=== PATIENT | female | born 1980 | race African-American/Black ===

== ENCOUNTER → 2019-08-19 | Outpatient (CLI) | payer OTHER ==
--- NOTE | 2019-08-20 11:33 | RADIOLOGY REPORT (SQ) ---
EXAM DESCRIPTION: U/S THYROID/SFT TISS HD NECK COMPLETED DATE/TIME: 08/19/2019 5:15 pm REASON FOR STUDY: R22.1 LOCALIZED SWELLING, MASS AND LUMP, NECK R22.1 LOCALIZED SWELLING, MASS AND LUMP, NECK COMPARISON: None. TECHNIQUE: Dynamic and static grayscale images acquired of the localized site of clinical concern an d recorded on PACS. Additional selected color Doppler and spectral images recorded. SITE OF CONCERN: Right neck. LIMITATIONS: None. FINDINGS: There are 3 small lymph nodes, 2 on the right and 1 on the left. Largest is on the left m easuring 13 x 11 x 5 mm. Preserved fatty rajesh. IMPRESSION: Physiologic lymph nodes. TECHNICAL DOCUMENTATION: JOB ID: [id number] [employer]- All Rights Reserved Reading location - IP/workstation name: [email or web address]
== END ==
LOC: RAD 16:15
PROVIDERS: ATTEND Physician Assistant
DX: R22.1 Localized swelling, mass and lump, neck (principal)
CPT/HCPCS: 76536

== ENCOUNTER 2020-04-01 08:31 | Day surgery (SDC) | payer OTHER ==
[2020-03-29 12:26] LABS: ABSOLUTE EOSINOPHILS # (AUTO) 0.1 10^3/uL (0.0-0.6); ABSOLUTE LYMPHOCYTES (AUTO) 2.4 10^3/uL (0.5-4.7); ABSOLUTE MONOCYTES (AUTO) 0.3 10^3/uL (0.1-1.4); ABSOLUTE NEUT (AUTO) 4.9 10^3/uL (1.7-8.2); BASOPHILS % (AUTO) 0.6 % (0-2); EOSINOPHILS % (AUTO) 1.5 % (0-6); HEMOGLOBIN 12.5 g/dL (12.0-15.5); LYMPHOCYTES % (AUTO) 30.2 % (13-45); MEAN CORPUSCULAR HEMOGLOBIN 31.2 pg (27.0-33.4); MEAN CORPUSCULAR HGB CONC 34.9 g/dL (32.0-36.0); MEAN CORPUSCULAR VOLUME 89 fl (80-97); MONOCYTES % (AUTO) 4.4 % (3-13); PLATELET COUNT 317 10^3/uL (150-450); RED BLOOD COUNT 4.02 10^6/uL (3.72-5.28); RED CELL DISTRIBUTION WIDTH 13.8 % (11.5-14.0); SEGMENTED NEUTROPHILS % (AUTO) 63.3 % (42-78); TOTAL CELLS COUNTED % (AUTO) 100 %; WHITE BLOOD COUNT 7.8 10^3/uL (4.0-10.5)
[2020-03-29 12:49] LABS: ANION GAP 10 (5-19); BLOOD UREA NITROGEN 12 mg/dL (7-20); CALCIUM 9.3 mg/dL (8.4-10.2); CARBON DIOXIDE 30 mmol/L (22-30); CHLORIDE 98 mmol/L (98-107); GLUCOSE 98 mg/dL (75-110); POTASSIUM 3.7 mmol/L (3.6-5.0)
[2020-03-30 06:36] LABS: HEPATITS B SURFACE ANTIGEN Negative (Negative)
[2020-03-30 07:06] LABS: HEPATITIS C VIRUS ANTIBODY <0.1 s/co ratio (0.0-0.9)
[2020-03-30 09:42] LABS: CYTOMEGALOVIRUS IGG AB >10.00 U/mL (0.00-0.59); CYTOMEGALOVIRUS IGM AB <30.0 AU/mL (0.0-29.9)
[2020-03-31 02:36] LABS: Q FEVER PHASE I AB Negative (Neg:<1:16); ROCKY MTN SPOTTED FEV IGG EIA Negative (Negative)
[2020-03-31 06:54] LABS: EPSTEIN BARR NUCLEAR AG IGG AB >600.0 U/mL (0.0-17.9); EPSTEIN BARR VCA IGG AB >600.0 U/mL (0.0-17.9); EPSTEIN BARR VCA IGM AB <36.0 U/mL (0.0-35.9)
[2020-03-31 06:55] LABS: Q FEVER PHASE II AB Negative (Neg:<1:16)
[~2020-04-01 08:31] MED LIST: ACETAMINOPHEN 325 MG TABLET PO PRN; CEFAZOLIN 2 GM/D5W RTU 2 GM/50 ML RTUPB IV PRN; DEXAMETHASONE SOD PHOSPHATE INJ 4 MG/1 ML VIAL ONE; FENTANYL CITRATE INJ/PF 100 MCG/2 ML AMPUL ONE; IBUPROFEN 800 MG in NORMAL SALINE 250 ML IV PRN; LACTATED RINGERS 1000 ML IV PRN; LIDOCAINE 0.5% INJ-PF (5 MG/ML) 50 ML SDV SUBCUT PRN; MIDAZOLAM 2 MG/2 ML INJ ONE; ONDANSETRON HCL INJ/PF 4 MG/2 ML SDV ONE; PROPOFOL INJ 200 MG/20 ML VIAL IV ONE
[2020-04-01] MEDS ORDERED: ACETAMINOPHEN 325 MG TABLET ONE (08:36)
[2020-04-01] MEDS ORDERED: CEFAZOLIN 2 GM/D5W RTU 2 GM/50 ML RTUPB IV ONE (08:36)
[2020-04-01] MEDS ORDERED: BUPIVACAINE HCL 0.25 % INJ/PF (2.5 MG/1 ML) 30 ML VIAL ONE (09:32)
[2020-04-01] MEDS ORDERED: LIDOCAINE 1% INJ-PF (10 MG/ML) 30 ML SDV ONE (09:32)
[2020-04-01] MEDS ORDERED: METHYLENE BLUE 50 MG/10 ML AMPULE ONE (09:33)
[2020-04-01] MEDS ORDERED: PROMETHAZINE HCL INJ 25 MG/1 ML VIAL IV PRN ×2 (10:10)
[2020-04-01] MEDS ORDERED: MEPERIDINE HCL/PF INJ 25 MG/1 ML DISP.SYRIN IV PRN (10:10)
[2020-04-01] MEDS ORDERED: MORPHINE SULFATE 10 MG/ML INJ IV PRN (10:10)
[2020-04-01] MEDS ORDERED: DIPHENHYDRAMINE HCL 50 MG/ML VIAL IV PRN (10:10)
[2020-04-01] MEDS ORDERED: FENTANYL CITRATE INJ/PF 100 MCG/2 ML AMPUL IV PRN ×3 (10:10)
[2020-04-01] MEDS ORDERED: ONDANSETRON HCL INJ/PF 4 MG/2 ML SDV IV PRN (10:10)
[2020-04-01] MEDS ORDERED: SUCCINYLCHOLINE CHLORIDE INJ 200 MG/10 ML VIAL ONE (10:16)
--- NOTE | 2020-04-01 10:38 | Operative Report ---
Nonrecallable Operative Report DATE OF SURGERY: 04/01/20 PREOPERATIVE DIAGNOSIS: Enlarged right neck lymph node POSTOPERATIVE DIAGNOSIS: Same as above OPERATION: Excisional biopsy of anterior/inferior right neck lymph node, deep space. SURGEON: BEULAH VERDUZCO 1ST BOAT OFFICER: KELSEA DAILEY ANESTHESIA: GA TISSUE REMOVED OR ALTERED: Inferior/anterior right neck lymph node COMPLICATIONS: None apparent ESTIMATED BLOOD LOSS: Minimal PROCEDURE: Drains/implants: None. Procedure in detail: After informed consent was obtained, the patient was brought to the operating room and laid the supine position. The area of the anterior neck was prepped and draped in normal sterile fashion. A 3 cm anterior neck incision was created 1 fingerbreadth above the sternal notch. Dissection was carried through the subcutaneous tissue. The platysma was divided. Subplatysmal flaps were raised superiorly and inferiorly. The right neck lymph node was then easily brought into view. The lymph node was obviously necrotic. It was excised from the surrounding tissues using a mixture of blunt dissection electrocautery. After the lymph node was removed, the platysma was closed using interrupted 3-0 Vicryl suture. The overlying skin was closed using 4-0 Vicryl Rapide suture in subcuticular fashion. A dressing was placed, and the procedure was concluded. All sponge, instrument, needle counts were correct x2. Condition: Stable. Kelsea Dailey PA-C was scrubbed and present the entirety of the procedure. She assisted with all portions of the procedure including opening of the neck, dissection of the lymph node, removal of the lymph node, closure of the platysma, closure of the skin.
[2020-04-01] MEDS ORDERED: HYDROCODONE/ACETAMINOPHEN 10-325 MG TABLET PO PRN (10:42)
--- NOTE | 2020-04-01 10:42 | Discharge Summary ---
Discharge Summary (SDC) - Discharge Final Diagnosis: Enlarged right inferior/anterior neck lymph node Date of Surgery: 04/01/20 Discharge Date: 04/01/20 Condition: Stable Treatment or Instructions: Discharge home. Diet as tolerated. Activity: Nonstrenuous. Follow-up with [facility] in 7 to 10 days. [place] 5/325 mg p.o. every 6 hours as needed for pain. Okay to shower starting Saturday. Prescriptions: Hydrocodone/Acetaminophen [[place] 5-325 Tablet] 1 each PO Q6HP PRN #10 tablet PRN Reason: For Pain Referrals: ANNE BRUNSON PA-C [Primary Care Provider] - Discharge Diet: As Tolerated Respiratory Treatments at Home: Deep Breathing/Coughing, Incentive Spirometer Discharge Activity: Balance Activity w/Rest Home Care Assistance: None Needed Report the Following to Your Physician Immediately: Shortness of Breath, Nausea, Vomiting, Increase in Pain, Fever over 101 Degrees, Unusual Bleeding, Redness, Swelling, Warmth
[2020-04-01] MEDS: FENTANYL CITRATE INJ/PF 100 MCG/2 ML AMPUL ONE ×2 (10:55→11:00)
--- NOTE | 2020-04-01 11:17 | Operative Report ---
Nonrecallable Operative Report DATE OF SURGERY: 04/01/20 PREOPERATIVE DIAGNOSIS: Bleeding internal hemorrhoids POSTOPERATIVE DIAGNOSIS: Same as above OPERATION: Rubber band ligation of internal hemorrhoids x4. SURGEON: BEULAH VERDUZCO ANESTHESIA: LMAC TISSUE REMOVED OR ALTERED: None COMPLICATIONS: None apparent ESTIMATED BLOOD LOSS: Minimal PROCEDURE: Drain/implants: None. Procedure in detail: After informed consent was obtained, the patient is brought to the operating room and laid in the left lateral decubitus position. A Hill- Hernandez retractor was inserted into the rectum. Internal hemorrhoids were identified. They were worse in the right posterior and right anterior positions. 4 rubber bands were used circumferentially to ligate internal hemorrhoids. Once this was completed, the procedure was concluded. All sponge, instrument, and needle counts were correct x2. Condition: Stable.
[2020-04-01 13:27] VITALS: BP 189/98
== END 2020-04-01 13:27 | disposition home or self-care (01) ==
LOC: OROUT 08:31
PROVIDERS: ATTEND Surgery
DX: R59.0 Localized enlarged lymph nodes (principal); I10 Essential (primary) hypertension; Z79.899 Other long term (current) drug therapy; Z03.818 Encounter for observation for suspected exposure to other biological agents ruled out; E66.9 Obesity, unspecified
CPT/HCPCS: 36415 ×2; 87206; 87116; 87101; 86665 ×2; 86664; 85025; 87635; 81025; 80048; 86644; 86757; 87015; 80074; 88342 ×2; 88305 ×2; 88312 ×2; 38510; J2250; J1100; J3010; J0330; J2405; J7050; J2704; J0690; J1741; C9803; 320; J3490; Q9968

== ENCOUNTER → 2020-09-28 | Outpatient (CLI) | payer OTHER ==
--- NOTE | 2020-09-29 15:10 | WOMENS IMAGING REPORT ---
EXAM DESCRIPTION: 3D SCREENING MAMMO BILAT IMAGES COMPLETED DATE/TIME: 09/28/2020 2:45 pm REASON FOR STUDY: Z12.31 ENCNTR SCREEN MAMMOGRAM FOR MALIGNANT NEOPLASM OF BREAST Z12.31 ENCNTR SCR EEN MAMMOGRAM FOR MALIGNANT NEOPLASM OF ELAINE COMPARISON: Baseline study EXAM PARAMETERS: Views: Standard craniocaudal and mediolateral oblique views of each breast recorded using digital acquisition and breast tomosynthesis. Read with the assistance of CAD. .[facility] - [employer] Machine Crane Operator Version 9.2 LIMITATIONS: None. FINDINGS: No suspicious masses, suspicious calcifications or architectural distortion. No areas of c oncern. IMPRESSION: NEGATIVE MAMMOGRAM. BIRADS 1. BREAST DENSITY: b. There are scattered areas of fibroglandular density. BIRAD: ASSESSMENT: 1 NEGATIVE RECOMMENDATION: ROUTINE SCREENING Please continue yearly bilateral screening mammography/tomosynthesis in September 2021 COMMENT: The patient has been notified of the results by letter per SA requirements. Additional no tification policies are in place for contacting patient with suspicious or incomplete findings. Quality ID #[id number]: The [employer] recommends an annual screening mammogram for women aged 40 years or over. This facility utilizes a reminder system to ensure that all patients receive reminder letters, and/or direct phone calls for appointments. This includes reminders for routine scr eening mammograms, diagnostic mammograms, or other Breast Imaging Interventions when appropriate. Th is patient will be placed in the appropriate reminder system. TECHNICAL DOCUMENTATION: FINDING NUMBER: (1) ASSESSMENT: (1) JOB ID: [id number] 2010 [employer] All Rights Reserved Reading location - IP/workstation name: [email or web address]
== END ==
LOC: WI 14:27
PROVIDERS: ATTEND Physician Assistant
DX: Z12.31 Encounter for screening mammogram for malignant neoplasm of breast (principal)
CPT/HCPCS: 77063; 77067